=== PATIENT | male | born 1995 | race Caucasian/White ===

== ENCOUNTER 2025-05-02 14:23 | Emergency (ER) | payer OTHER, SELFPAY ==
[2025-05-02 14:37] VITALS: BP 135/66; PULSE 70; RESP 16; TEMP 36.8; O2SAT 98; BMI 22.9
--- NOTE | 2025-05-02 16:38 | ED.WOUNDLAC ---
HPI - Wound/Laceration General Chief Complaint: Wound/Laceration Stated Complaint: Cut l pointer finger at work Time Seen by Provider: 05/02/25 15:16 Source: patient Mode of arrival: Ambulatory History of Present Illness HPI narrative: 30-year-old male presents to the ED status post a left pointer finger injury sustained just prior to arrival. Patient states he was working with a sharp knife, when he accidentally injured his left pointer finger. Tetanus is up-to-date. Patient is able to extend and flex his finger normally. Bleeding is controlled with pressure. No numbness, tingling, weakness. Related Data Allergies Allergy/AdvReac Type Severity Reaction Status Date / Time codeine Allergy Mild Dizziness Verified 05/02/25 14:38 Review of Systems Constitutional Constitutional: Denies chills, Denies fatigue, Denies fever(s), Denies frequent falls, Denies lethargy and Denies weakness Eyes Eyes: Denies change in vision, Denies eye discharge, Denies irritation and Denies loss of vision ENT Ears, Nose, Mouth, and Throat: Denies change in voice, Denies dizziness, Denies neck pain, Denies sore throat and Denies throat swelling Cardiovascular Cardiovascular: Denies chest pain, Denies irregular heart rhythm, Denies lightheadedness, Denies palpitations, Denies dyspnea, Denies dyspnea on exertion and Denies orthopnea Respiratory Respiratory: Denies cough, Denies dyspnea, Denies dyspnea on exertion and Denies wheezing Gastrointestinal Gastrointestinal: Denies abdominal pain, Denies change in bowel habits, Denies diarrhea, Denies nausea and Denies vomiting Musculoskeletal Musculoskeletal: Denies neck pain and Denies numbness Integumentary/Breasts Skin/Breast: Denies pruritus, Denies erythema, Denies rash and Reports wounds Comments: Left pointer finger laceration Neurologic Neurologic: Denies behavioral changes, Denies confusion, Denies dizziness, Denies frequent falls, Denies loss of vision, Denies numbness and Denies weakness Psychiatric Psychiatric: Denies anxiety, Denies behavioral changes, Denies confusion, Denies depression, Denies homicidal ideation and Denies suicidal ideation Endocrine Endocrine: Denies fatigue, Denies flushing and Denies palpitations Hematologic/Lymphatic Hematologic/Lymphatic: Denies easy bruising Allergic/Immunologic Allergic/Immunologic: Denies urticaria, Denies throat swelling and Denies wheezing Patient History Smoking Status: Never smoker Exam Narrative Exam Narrative: Const General:?cooperative, healthy appearing and comfortable [facility] Head:?normal to inspection Ears:?hearing grossly normal bilaterally Nose:?external nose normal Face and sinus:?normal facial exam and sinuses nontender Mouth:?oral mucosae normal Throat:?posterior oropharynx normal Eyes General:?appearance normal, both eyes and all related structures Neck Neck:?normal visual inspection and no lymphadenopathy noted Resp Effort & Inspection:?normal respiratory effort Auscultation:?clear to auscultation bilaterally Cardio Rate:?regular rate Rhythm:?regular rhythm Integumentary 1.5 cm linear laceration to the dorsal aspect of the left pointer finger, distal to the PIP joint. Bleeding is controlled with pressure. No internal structures visualized on exam. Neuro General:?patient alert, patient awake and patient oriented x3 Initial Vital Signs Initial Vital Signs: Vital Signs Temperature 98.2 F 05/02/25 14:37 Pulse Rate 70 05/02/25 14:37 Respiratory Rate 16 05/02/25 14:37 Blood Pressure 135/66 05/02/25 14:37 Pulse Oximetry 98 05/02/25 14:37 Oxygen Delivery Method Room Air 05/02/25 14:37 Procedures Laceration Repair Laceration 1: Site: hand Side (If applicable): left Size (cm): 1.5 Description: linear Depth: simple, single layer Local Anesthetic: lidocaine 2% Amount of anesthesia used (mL): 1 Pre-repair: wound explored, irrigated extensively and deep structures intact Skin layer closed with: nylon Skin layer suture size: 5-0 Number of sutures: 3 Technique: simple, interrupted Course Vital Signs Vital signs: Vital Signs - 8 hr 05/02/25 14:37 Temperature 98.2 F Pulse Rate 70 Respiratory Rate 16 Blood Pressure 135/66 Pulse Oximetry 98 Oxygen Delivery Method Room Air MDM - Wound/Laceration MDM Narrative Medical decision making narrative: 30-year-old male presents to the ED status post a left pointer finger injury sustained just prior to arrival. 1.5 cm linear laceration to the dorsal aspect of the left pointer finger, distal to the PIP joint. Bleeding is controlled with pressure. No internal structures visualized on exam. No indication for imaging at this time. Laceration repaired with 3 sutures. Sutures will need to be removed in 7-10 days. Suture removal, wound care, signs of infection discussed with patient. ED return precautions discussed with patient. Patient verbalized understanding. Medical records reviewed: Yes Discharge Plan Departure Patient Disposition: Home Clinical Impression: Laceration Instructions: DI for Laceration Repair Activity Restrictions/Additional Instructions: You were evaluated in the emergency department for a finger injury. The laceration was repaired with 3 sutures. Sutures will need to be removed in 7-10 days. You may return to the ED, go to a walk-in clinic or your primary care doctor's office for suture removal. Please keep the wound clean and dry for the 1st 24 hours, after which you may wash gently with soap and water. Please try the wound completely prior to dressing again. It is advisable to keep the wound dressed to prevent infection or disruption of the sutures. Please watch for signs of infection including worsening redness, swelling, pain, warmth, discharge. Return to the ED if you note any signs of infection. Stand Alone Forms: Patient Portal/API
[2025-05-02 16:39] VITALS: BP 105/58; PULSE 58; RESP 15; O2SAT 98
== END 2025-05-02 16:39 | disposition home or self-care (01) ==
PROVIDERS: Emergency Provider Student in an Organized Health Care Education/Training Program
DX: S61.211A Laceration without foreign body of left index finger without damage to nail, initial encounter (principal); W26.0XXA Contact with knife, initial encounter
CPT/HCPCS: 12001; 99282; 99283